=== PATIENT | male | born 1990 | race Caucasian/White ===

== ENCOUNTER 2025-02-01 05:26 | Inpatient (IN) | payer BC ==
[~2025-02-01] VITALS: Ht 180.3 cm; Wt 127.0 kg
[2025-02-01] VITALS (21 sets, daily range): BP systolic 112–132; BP diastolic 60–87; PULSE 85–113; RESP 10–22; TEMP 36.3068–36.8; O2SAT 92–97
[~2025-02-01 05:26] MED LIST: LACTATED RINGERS 1,000 ML IV SCH
[2025-02-01] MEDS ORDERED: LIDOCAINE HCL/EPINEPHRINE 1%-EPI 1:100,000 20ML VIAL ONE (06:13)
[2025-02-01] MEDS ORDERED: GENTAMICIN SULF 40MG/ML 2ML VIAL ONE (06:13)
[2025-02-01] MEDS ORDERED: THROMBIN (BOVINE) 5000 UNITS/VIAL TOP ONE (06:13)
[2025-02-01] MEDS ORDERED: FAMOTIDINE 20MG/2ML VIAL IV ONE (06:14)
[2025-02-01] MEDS ORDERED: PROPOFOL 200MG/20ML VIAL IV ONE (06:46)
[2025-02-01] MEDS ORDERED: ONDANSETRON HCL 4MG/2ML INJ ONE (06:46)
[2025-02-01] MEDS ORDERED: METOCLOPRAMIDE HCL 10MG/2ML VIAL ONE (06:46)
[2025-02-01] MEDS ORDERED: ROCURONIUM BROMIDE 10MG/ML VIAL 5ML IV ONE (06:46)
[2025-02-01] MEDS ORDERED: MIDAZOLAM HCL 2 MG/2 ML VIAL ONE (06:46)
[2025-02-01] MEDS ORDERED: FENTANYL CITRATE/PF 50MCG/ML 2ML VIAL ONE (06:47)
[2025-02-01] MEDS ORDERED: BACL-141 PO (06:48)
[2025-02-01] MEDS ORDERED: SERT100T PO (06:48)
[2025-02-01] MEDS ORDERED: BUPR-102 PO (06:48)
[2025-02-01] MEDS ORDERED: TRAZ-251 PO (06:48)
[2025-02-01] MEDS ORDERED: GABA-290 PO (06:48)
[2025-02-01] MEDS ORDERED: ONDA-239 PO (06:48)
[2025-02-01] MEDS ORDERED: DICLOFENAC PO (06:48)
[2025-02-01] MEDS ORDERED: BUSP15TA3 PO (06:48)
[2025-02-01] MEDS ORDERED: ACET-2708 PO (06:48)
[2025-02-01] MEDS ORDERED: CEFAZOLIN SODIUM 1000MG/VIAL ONE (06:49)
[2025-02-01] MEDS ORDERED: SUCCINYLCHOLINE CHLORIDE 200MG/10ML IV ONE (06:49)
[2025-02-01] MEDS ORDERED: HYDROMORPHONE HCL/PF 2MG/ML INJ ONE ×2 (08:09→10:24)
[2025-02-01] MEDS ORDERED: HYDRALAZINE 20MG/ML VIAL ONE (10:23)
[2025-02-01] MEDS: DEXAMETHASONE 4MG/ML 1ML VIAL IV SCH (12:42)
[2025-02-01] MEDS: DEXT 5%/LACTATED RINGERS 1,000 ML IV SCH (12:42)
[2025-02-01] MEDS: ONDANSETRON HCL 4MG/2ML INJ IV PRN (13:41)
[2025-02-01] MEDS ORDERED: CEFAZOLIN SODIUM 1000MG/VIAL IV SCH (14:00)
[2025-02-01] MEDS: MORPHINE SULFATE 4 MG/ML INJ (FOR IV/IM USE) IV PRN (14:13)
[2025-02-01] MEDS: METOCLOPRAMIDE HCL 10MG TABLET PO PRN (21:24)
[2025-02-01] MEDS: NICARDIPINE 100 MG in SODIUM CHLORIDE 0.9% 60 ML IV PRN (21:27)
[2025-02-01] MEDS: CEFAZOLIN 1000MG PREMIX 50ML IV SCH (21:27)
[2025-02-02] VITALS (70 sets, daily range): BP systolic 104–128; BP diastolic 60–77; PULSE 79–107; RESP 0–24; TEMP 36.4–37.4; O2SAT 94–100
[2025-02-02] MEDS ORDERED: IPRATROPIUM/ALBUTEROL 0.5-3(2.5)MG/3ML NEB HHN PRN (09:15)
[2025-02-02] MEDS ORDERED: HYDRALAZINE 20MG/ML VIAL IV PRN (12:30)
[2025-02-02] MEDS ORDERED: NALOXONE HCL 0.4MG/ML VIAL IV PRN (12:45)
[2025-02-02 17:24] LABS: HEMATOCRIT. 36.5 % (42.0-52.0); HEMOGLOBIN. 12.4 g/dL (14.0-18.0); MEAN PLATELET VOLUME 8.3 fl (7.4-10.4); PLATELET 227 x1000/uL (130-400); RED BLOOD CELL COUNT 3.99 mill/uL (4.7-6.1); RED CELL DISTRIBUTION WIDTH 13.0 % (11.6-14.6)
[2025-02-02 17:41] LABS: CREATININE 0.8 mg/dL (0.6-1.3); UREA NITROGEN BLOOD 8 mg/dL (9-23)
[2025-02-02 17:49] LABS: BAND% 2.0 % (1.0-6.0); LYMPHOCYTES % MANUAL 5.0 % (20.0-50.0); MONOCYTES % MANUAL 3.0 % (2.0-8.0); NEUTROPHILS % MANUAL 90.0 % (45.0-75.0); PLATELET ESTIMATE NORMAL
[2025-02-02] MEDS: HYDROCODONE/ACETAMINOPHEN 10/325MG TABLET PO PRN (20:31)
[2025-02-03] VITALS: BP 116/55; PULSE 70; RESP 19; TEMP 36.4; O2SAT 98
[2025-02-03 04:00] VITALS: BP 106/61; PULSE 66; RESP 18; TEMP 36.3; O2SAT 98
[2025-02-03 08:00] VITALS: BP 106/63; PULSE 64; RESP 18; TEMP 36.2; O2SAT 98
[2025-02-03 12:00] VITALS: BP 104/59; PULSE 75; RESP 18; TEMP 36.4; O2SAT 100
[2025-02-03] MEDS: GABAPENTIN 300MG CAPSULE PO SCH (13:23)
[2025-02-03 16:00] VITALS: BP 106/53; PULSE 77; RESP 17; TEMP 36.4; O2SAT 100
[2025-02-03 20:00] VITALS: BP_SYST 124; BP_SYST 99; BP_DIAS 41; BP_DIAS 62; PULSE 80; PULSE 98; RESP 18; RESP 19; TEMP 37.1; TEMP 37.7; O2SAT 100; O2SAT 98
[2025-02-04] VITALS: BP 122/61; PULSE 67; RESP 19; TEMP 37.2; O2SAT 98
[2025-02-04 04:00] VITALS: BP 125/60; PULSE 68; RESP 18; TEMP 36.6; O2SAT 98
[2025-02-04 08:00] VITALS: BP 126/77; PULSE 76; RESP 18; TEMP 36.1; O2SAT 95
[2025-02-04] MEDS: TRAMADOL 50MG TABLET PO PRN (09:39)
[2025-02-04 12:00] VITALS: BP 124/75; PULSE 71; RESP 19; TEMP 36.2; O2SAT 97; O2SAT 98
[2025-02-04 16:00] VITALS: BP 126/79; PULSE 85; RESP 19; TEMP 36.2; O2SAT 98
[2025-02-04 20:00] VITALS: BP 118/78; PULSE 87; RESP 18; TEMP 36.7; O2SAT 99
[2025-02-05 08:00] VITALS: BP 128/85; PULSE 83; RESP 19; TEMP 35.3; O2SAT 98
[2025-02-05 09:27] VITALS: BP 128/85; PULSE 83; RESP 19; TEMP 95.6
== END 2025-02-05 10:25 | disposition home or self-care (01) | DRG 519 ==
LOC: OR 05:26 → MICUSO 05:27 → EDSTATUS 07:30 → 6EST 02-02 18:41
PROVIDERS: ADMIT Neurological Surgery; ATTEND Neurological Surgery
PROC: 00NX0ZZ Release Thoracic Spinal Cord, Open Approach (ICD-10-PCS; principal; 2025-02-01)
PROC: 0RB90ZZ Excision of Thoracic Vertebral Disc, Open Approach (ICD-10-PCS; 2025-02-01)
PROC: 4A11X4G Monitoring of Peripheral Nervous Electrical Activity, Intraoperative, External Approach (ICD-10-PCS; 2025-02-01)
DX: M51.04 Intervertebral disc disorders with myelopathy, thoracic region (principal); G82.20 Paraplegia, unspecified; G95.0 Syringomyelia and syringobulbia; G95.29 Other cord compression; E66.9 Obesity, unspecified; Z68.39 Body mass index [BMI] 39.0-39.9, adult; Z79.899 Other long term (current) drug therapy
CPT/HCPCS: 36415; 72070; 72146; 76000; 80048; 85025; 86850; 86900; 88304; 88311; 93970; 97116; 97162; 97530; 97535; A4606; J0330; J0360; J0690; J1100; J1171; J1308; J1580; J2004; J2250; J2270; J2405; J2704; J2765; J3010; J3490; J7121; J8597